=== PATIENT | male | born 2000 | race Caucasian/White ===

== ENCOUNTER 2024-04-26 07:26 | Emergency (ER) | payer OTHER ==
[~2024-04-26] VITALS: Ht 182.9 cm; Wt 102.1 kg
[2024-04-26 07:38] VITALS: BP 142/58; PULSE 64; RESP 20; TEMP 98; O2SAT 99
[2024-04-26] MEDS ORDERED: HYDR25CA1 PO (08:13)
[2024-04-26 08:19] VITALS: BP 122/70; PULSE 64; RESP 20; TEMP 98; O2SAT 99
== END 2024-04-26 08:19 | disposition home or self-care (01) ==
LOC: MED 07:26
DX: G47.00 Insomnia, unspecified (principal); F41.9 Anxiety disorder, unspecified; Z79.899 Other long term (current) drug therapy
CPT/HCPCS: 99283